=== PATIENT | male | born 1975 | race Caucasian/White ===

== ENCOUNTER 2018-09-30 10:24 | Observation (INO) | payer BC, OTHER ==
[2018-09-30] MEDS ORDERED: Proparacaine 0.5% Opth 15 ML BOT ONE (10:37)
[2018-09-30 10:53] LABS: Mean Corpuscular HGB CONC 31.7 g/dL (32.0-36.0); Mean Corpuscular Hemoglobin 27.4 pg (27.0-31.0); Mean Corpuscular Volume 86.4 fL (78.0-98.0); Mean Platelet Volume 8.1 fL (7.4-10.4); Platelet Count 226 thou/uL (130-400); RBC Distribution Width 14.6 % (11.5-14.5); Red Blood Cell (RBC) Count 6.59 mill/uL (4.70-6.10); White Blood Cell (WBC) Count 9.3 thou/uL (4.8-10.8)
--- NOTE | 2018-09-30 11:00 | CT ---
Exam: Head CT without contrast HISTORY: Headache. Left eye vision change. Symptoms onset yesterday at 1600 hours. Hazy vision. [place] y vision, double vision. COMPARISON: none FINDINGS: Hemorrhage: No intraparenchymal hemorrhage or extra-axial hematoma. Brain parenchyma: Cortical jason-white matter differentiation is preserved. No mass effect or midline shift. Basilar cisterns are patent. Ventricular system: Ventricles and sulci are patent and symmetric. Calvarium: Intact. Sinuses and mastoid air cells: Partial opacification of bilateral ethmoid air cells and maxillary sin uses. Adequate mastoid air cell aeration. Orbits: Visualized globes and retrobulbar structures are unremarkable IMPRESSION: No acute intracranial process. Results study discussed with Dr. Romo 09/30/2018 at 10:56 AM Code CR
[2018-09-30 11:08] LABS: ALT (SGPT) 59 U/L (8-55); AST (SGOT) 40 U/L (5-34); Albumin 4.7 g/dL (3.5-5.0); Alkaline Phosphatase 79 U/L (40-150); Anion Gap 13 mmol/L (10-20); BUN (Urea Nitrogen) 26 mg/dL (8.9-20.6); Bilirubin, Total 0.6 mg/dL (0.2-1.2); Calc. Creatinine Clearance 0 mL/min (70-130); Carbon Dioxide 27 mmol/L (22-29); Chloride 103 mmol/L (98-107); Estimated GFR-MDRD 72; Globulin 2.9 g/dL (2.4-3.5); Glucose 100 mg/dL (70-105); Potassium 4.6 mmol/L (3.5-5.1); Protein, Total 7.6 g/dL (6.0-8.3); Sodium 138 mmol/L (136-145)
[2018-09-30] MEDS ORDERED: Metoclopramide HCl 10 MG/2 ML VIAL ONE (11:23)
[2018-09-30] MEDS ORDERED: Acetaminophen 500 MG TAB ONE (11:23)
[2018-09-30] MEDS ORDERED: Ketorolac Tromethamine 30 MG/ML VIAL ONE (11:23)
[2018-09-30 11:41] LABS: Eosinophils 1 % (0-10); Hypochromia SLIGHT = 6-15 cells (100X) (0-5/hpf); Lymphocytes 27 % (21-51); MDiff Complete? YES; Monocytes 7 % (0-10); Neutrophil 63 % (42-75); Platelet Morphology Comment Appears Adequate; Polychromasia SLIGHT = 2-3 cells (100X) (0-2/hpf)
[2018-09-30] MEDS ORDERED: methylPREDNISolone Sod Succ 1,000 MG in Sodium Chloride 0.9% 100 ML IVPB SCH (12:45)
[2018-09-30] MEDS ORDERED: methylPREDNISolone Sod Succ 1,000 MG in Sodium Chloride 0.9% 250 ML 250 ML IVPB SCH (12:45)
--- NOTE | 2018-09-30 13:14 | PDOC.FPRHP ---
- History of Present Illness Chief Complaint: L eye pain History of Present Illness: 43yo M with pmh of HTN and Anxiety presents for L eye pain. Onset yesterday 4pm was sudden, pt felt sharp pain in eye with mvmt. Pt also reports to have visual disturbance (blurred vision, pixelated colors, halo rings). Eye pain progressed to head pain and L sided facial pain. Symptoms are localized to L side of face. Of note pt has had WARREN all week while working out (especially doing squats). Pt denies any other neurologic deficits including facial droop, slurred speech, and focal weakness. Symptoms were alleviated by toradol in ED somewhat though not resolved. ED Course: Toradol, tylenol, metoclopramide, 1L NS Neuro (Dr. Jackson) called and recommended 1g solumedrol (administered) - Allergies/Adverse Reactions Allergies Allergy/AdvReac Type Severity Reaction Status Date / Time Penicillins Allergy Verified 04/22/13 09:50 - Home Medications Medication Instructions Recorded Confirmed Type Atenolol 100 mg PO DAILY 09/30/18 09/30/18 History Atorvastatin Calcium [Lipitor] 20 mg PO DAILY 09/30/18 09/30/18 History Dexlansoprazole [Dexilant] 60 mg PO DAILY 09/30/18 09/30/18 History Niacin [Niacin SR] 500 mg PO HS 09/30/18 09/30/18 History [place]-3 Fatty Acids/Fish Oil 1 cap PO DAILY 09/30/18 09/30/18 History [[place] 3 1,000 mg Softgel] PARoxetine HCl [Paxil] 40 mg PO DAILY 09/30/18 09/30/18 History methylPREDNISolone [Medrol Dospak] 4 mg PO ASDIR 6 Days #1 pack 10/01/18 Rx - History PMHx: HTN, anxiety, GERD PSHx: tonsillectomy, colonoscopy with polyp bx FHx: PR in mother, muscular dystrophy (sister) Social: social drinking, denies tobacco and drugs - Review of Systems General: denies: fever/chills, fatigue Eyes: reports: eye pain, vision changes ENT: denies: nasal congestion, rhinorrhea Respiratory: denies: congestion, shortness of breath Cardiovascular: denies: chest pain, palpitation Gastrointestinal: denies: nausea, vomiting Genitourinary: denies: dysuria, polyuria Skin: denies: rashes, lesions Musculoskeletal: denies: pain, tenderness Neurological: denies: numbness, syncope, seizure Psychological: denies: anxiety, depression - Vital signs BP: 146/87, Pulse: 69, Resp: 20, Temp: 98.4, Pain: 6, O2 sat: 97 on RA, Time: 12:30. weight 88kg - Physical Exam Constitutional: awake, alert and oriented, well developed HEENT: conjunctiva clear, grossly normal hearing, MMM Neck: supple, trachea midline Chest: no lesions Heart: RRR, normal S1/S2 Lungs: CTAB, no respiratory distress Abdomen: soft, non-tender Musculoskeletal: normal structure, normal tone Neurological: no focal deficit, normal sensation, DTRs 2+ -Neurological: ocular mvmt test not tolerated by pt well 2/2 pain, however EOMI despite hesitancy with pain. pt has decreased acuity in L eye vision. Skin: no rash/lesions, good turgor -Skin: skin on L maxillary ttp, no erythema or edema Heme/Lymphatic: no purpura, no petechia Psychiatric: normal mood and affect, good judgment and insight FMR H&P: Results - Labs Result Diagrams: 09/30/18 10:36 10/01/18 05:53 Lab results: WBC 9.3 thou/uL (4.8-10.8) 09/30/18 10:36 Hgb 18.0 g/dL (14.0-18.0) 09/30/18 10:36 Hct 56.9 % (42.0-52.0) H 09/30/18 10:36 MCV 86.4 fL (78.0-98.0) 09/30/18 10:36 Plt Count 226 thou/uL (130-400) 09/30/18 10:36 ESR Westergren 2 mm/hr (Less than 15) 09/30/18 10:36 Sodium 138 mmol/L (136-145) 09/30/18 10:36 Potassium 4.6 mmol/L (3.5-5.1) 09/30/18 10:36 Chloride 103 mmol/L (98-107) 09/30/18 10:36 Carbon Dioxide 27 mmol/L (22-29) 09/30/18 10:36 BUN 26 mg/dL (8.9-20.6) H 09/30/18 10:36 Creatinine 1.11 mg/dL (0.7-1.3) 09/30/18 10:36 Glucose 100 mg/dL (70-105) 09/30/18 10:36 Calcium 10.0 mg/dL (7.8-10.44) 09/30/18 10:36 Total Bilirubin 0.6 mg/dL (0.2-1.2) 09/30/18 10:36 AST 40 U/L (5-34) H 09/30/18 10:36 ALT 59 U/L (8-55) H 09/30/18 10:36 Alkaline Phosphatase 79 U/L (40-150) 09/30/18 10:36 C-Reactive Protein Less than 0.50 mg/dL (= or < 0.5) 09/30/18 10:36 Serum Total Protein 7.6 g/dL (6.0-8.3) 09/30/18 10:36 Albumin 4.7 g/dL (3.5-5.0) 09/30/18 10:36 FMR H&P: A/P - Problem List (1) Eye pain Status: Acute Code(s): H57.10 - OCULAR PAIN, UNSPECIFIED EYE (2) Visual disorder Status: Acute Code(s): H53.9 - UNSPECIFIED VISUAL DISTURBANCE (3) HTN (hypertension) Status: Acute Code(s): I10 - ESSENTIAL (PRIMARY) HYPERTENSION (4) Elevated transaminase level Status: Acute Code(s): R74.0 - NONSPEC ELEV OF LEVELS OF TRANSAMNS & LACTIC ACID DEHYDRGNSE (5) Headache Status: Acute Code(s): R51 - HEADACHE - Plan L eye pain and visual disturbance A- Likely 2/2 complex migraine vs. optic neuritis vs. MS vs. anneurysm vs. HTN urgency encephalitis. CT brain negative. CRP and ESR wnl. Neuro exam not consistent with stroke. Pt s/p 1000mg solumedrol per Neuro recs (much appreciated) P- MRI and MRA Brain and orbits -Tylenol and toradol prn for pain -anti dsDNA and RAAD -control BP -f/u neuro recs HTN A- BP 175/101 in ER, could be contributing to WARREN and neurologic symptoms. 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 He reports this started yesterday afternoon. - Pertinent findings VSS - slightly hypertensive Gen: awake, alert, oriented HEENT: NCAT, MMM, L eye with significant photophobia, no t earing or erythema, Martinez' lamp exam negative, siena pen WNL per ER MD CV: RRR, no murmur RESP: CTAB ABD: soft, NTND NEURO: TTP of V2 distribution, diminished senstaion of V1, other CN WNL, strength and sensation intact throughout (slight decreased on L thigh) - Plan Date/Time: 09/30/18 1314 43 yo M who presents with L eye pain concerning for optic neuritis 1. Concern for optic neuritis - MRI/MRA pending - s/p solu-medrol in ED - Continue steroids, pending neuro recs - Toradol for pain, can escalate if needed - DDX includes MS, atypical migraine, cluster headache, CT negative for mass and bleed 2. HTN - Will augment home meds as needed I, Ricarda Abrams MD, PGY-3, have evaluated this patient and agree with findings/ plan as outlined by network internship resident. Pertinent changes/additions are listed here.
[2018-09-30] MEDS ORDERED: Acetaminophen 325 MG TAB PO PRN (14:30)
[2018-09-30] MEDS ORDERED: Ondansetron ODT 4 MG TAB PO PRN (14:30)
[2018-09-30] MEDS ORDERED: Aspirin 325 MG TAB PO SCH (14:30)
[2018-09-30] MEDS ORDERED: diphenhydrAMINE 50 MG/ML VIAL IVP SCH (14:30)
[2018-09-30] MEDS ORDERED: Calcium Carbonate 500 MG ChewTAB PO PRN (14:30)
[2018-09-30] MEDS ORDERED: hydrALAZINE 20 MG/ML VIAL SLOW IVP PRN (14:40)
[2018-09-30] MEDS ORDERED: Atorvastatin Calcium 40 MG TAB PO SCH (15:00)
[2018-09-30] MEDS ORDERED: Amlodipine 10 MG TAB PO SCH (15:00)
[2018-09-30] MEDS ORDERED: Sodium Chloride 0.9% 10 ML ONE (15:23)
[2018-09-30] MEDS ORDERED: Fluorescein Opthalmic Strip EA EYE SCH ×3 (16:00→16:15)
[2018-09-30] MEDS ORDERED: Ketorolac Tromethamine 30 MG/ML VIAL IVP PRN (16:05)
[2018-09-30 16:09] LABS: Hep B Surf Ag Non-Reactive S/CO (NonReactive); Hep C IgG Ab Non-Reactive (NonReactive); Hep C Index 0.03 S/CO (0-0.79)
--- NOTE | 2018-09-30 16:59 | PDOC.EVN ---
Event Note - Event Note Event Note: Date/Time: 09/30/18 7245 I personally evaluated the patient and discussed the management with Dr. Hunter at time of admission. H&P pending. I agree with the History, Examination, Assessment and Plan as discussed. His exam showed no deficits in his arms or legs. However he noted worsening [place] with exertion, such as lifting weights this past week. [place] left eye pain that is worse with moving the eye and with photophobia. MRa compelted. awaiting report.
--- NOTE | 2018-09-30 17:19 | MRI ---
Pre and postcontrast enhanced MRI images brain and orbits. HISTORY: New onset headaches double vision and blurring. Lungs clear multisequence pre and postcontrast enhanced MRI images of the brain and orbits demonstrat e bilateral maxillary sinus mucus retention cyst. Mild bilateral ethmoid and frontal sinus mucosal thickening seen. No evidence of significant intracranial masses or lesions seen. Ventricles are of normal size. No abnormal areas of intracranial enhancement seen. No evidence of T2 signal abnormality seen. The orbits are unremarkable. IMPRESSION: Unremarkable pre and postcontrast enhanced MRI images of brain and orbits. Incidentally n oted paranasal sinus disease is present.
--- NOTE | 2018-09-30 17:25 | MRI ---
MAGNETIC RESONANCE ANGIOGRAM MRA OF HEAD NONCONTRAST: 09/30/18 HISTORY: 43-year-old male with diplopia and blurred vision with severe headache. Rule out aneurysm. TECHNIQUE: 3D [id number] MRA acquisition in multiple axial slabs. Source images and 3D MIP reconstructions e valuated. FINDINGS: There is no evidence of aneurysm larger than 3 mm, including any Pcom aneurysms. In fact, there are n o posterior communicating arteries. There is no evidence of high grade short segment acquired stenosi s of the posterior circulation or anterior circulation. Please note that an MRA of the head is consid ered incomplete without an accompanying MRI. IMPRESSION: Negative. POS: CARLA
--- NOTE | 2018-10-01 00:54 | CON ---
DATE OF CONSULTATION: 09/30/2018 CONSULTING PHYSICIAN: Hospitalist Service. IMPRESSION: Left optic neuritis without evidence of central nervous system involvement to suggest multiple sclerosis. PLAN: 1. Solu-Medrol 1 g tomorrow. 2. Medrol Dosepak at discharge. 3. NMO and MOG antibodies. 4. Office followup. HISTORY OF PRESENT ILLNESS: Mr. Padron is a 43-year-old man with no significant past history. Yesterday, he started developing blurred vision on the left with high pain. He came into the emergency room today due to the persistent symptoms. He had a CT scan of the brain which was negative. His ocular pressures were normal. He was started on Solu-Medrol in the emergency room. He had an MRI of the brain and MRA, both of which were unremarkable. He grew up in [place]. His health has been good otherwise. ALLERGIES: NONE REPORTED. SOCIAL HISTORY: No illicit drug use. FAMILY HISTORY: Noncontributory. REVIEW OF SYSTEMS: Ten system review of systems is otherwise negative. PHYSICAL EXAMINATION: GENERAL: He is a healthy-appearing middle-aged man, in no acute distress. VITAL SIGNS: Stable. He has been afebrile. HEENT: Pupils are equal. Conjunctivae clear. Oropharynx clear. NECK: Supple. No lymphadenopathy. EXTREMITIES: No cyanosis or edema. NEUROLOGIC: He is alert and appropriate. His speech is fluent and clear. Cranial nerve exam shows normal eye movements. Face appears to be symmetric. Visual acuity is subjectively blurred in a patchy pattern on the left. Motor exam, equal strength. Sensations intact. Gait is steady. No abnormal movements are seen. IMAGING STUDIES: Reviewed. SUMMARY: A middle-aged man with acute onset of blurred vision and retro-orbital pain consistent with retrobulbar optic neuritis. He fortunately has no evidence of brain involvement to suggest a mass. We will rule out 2 other possibilities and follow up with him as an outpatient. Job ID: [id number]
[2018-10-01 06:30] LABS: ALT (SGPT) 49 U/L (8-55); AST (SGOT) 25 U/L (5-34); Alkaline Phosphatase 64 U/L (40-150); Anion Gap 10 mmol/L (10-20); BUN (Urea Nitrogen) 30 mg/dL (8.9-20.6); Bilirubin, Total 0.9 mg/dL (0.2-1.2); Calc. Creatinine Clearance 0 mL/min (70-130); Calcium 9.2 mg/dL (7.8-10.44); Carbon Dioxide 23 mmol/L (22-29); Cardiac Risk 5.5 (Less than 4.5); Chloride 107 mmol/L (98-107); Cholesterol 183 mg/dl (< 200 Desired); Estimated GFR-MDRD 63; Globulin 2.1 g/dL (2.4-3.5); Glucose 147 mg/dL (70-105); HDL Cholesterol 33 mg/dL (>60 Neg Risk); LDL Cholesterol, Calculated 136 mg/dL; Potassium 4.2 mmol/L (3.5-5.1); Protein, Total 6.1 g/dL (6.0-8.3); Sodium 136 mmol/L (136-145); Triglycerides 68 mg/dL (Less than 150)
--- NOTE | 2018-10-01 07:25 | PDOC.FM ---
- Subjective Subjective: Pt reports feelign much better with resolution of all pain and most of his visual symptoms. still has mild blurring of vision in L eye. - Objective Vital Signs & Weight: Vital Signs (12 hours) Temp Pulse Resp BP Pulse Ox 10/01/18 04:25 97.5 F L 63 16 107/66 10/01/18 00:40 98.2 F 75 16 117/69 95 09/30/18 20:14 98.0 F 77 18 134/68 94 L Result Diagrams: 09/30/18 10:36 10/01/18 05:53 Phys Exam - Physical Examination Constitutional: NAD HEENT: moist MMs, sclera anicteric no facial TTP Neck: no nodes, no JVD Respiratory: no wheezing, clear to auscultation bilateral Cardiovascular: RRR, no significant murmur Gastrointestinal: soft, non-tender Musculoskeletal: no edema, pulses present Neurological: non-focal, normal sensation, moves all 4 limbs Psychiatric: normal affect, A&O x 3 Skin: no rash, normal turgor Dx/Plan (1) Eye pain Code(s): H57.10 - OCULAR PAIN, UNSPECIFIED EYE Status: Acute (2) Visual disorder Code(s): H53.9 - UNSPECIFIED VISUAL DISTURBANCE Status: Acute (3) HTN (hypertension) Code(s): I10 - ESSENTIAL (PRIMARY) HYPERTENSION Status: Acute (4) Elevated transaminase level Code(s): R74.0 - NONSPEC ELEV OF LEVELS OF TRANSAMNS & LACTIC ACID DEHYDRGNSE Status: Acute (5) Headache Code(s): R51 - HEADACHE Status: Acute - Plan Plan: L eye pain and visual disturbance 2/2 optic neuritis A- MRI and MRA unremarkable, neuro consulted. CT brain negative. CRP and ESR wnl. Neuro exam not consistent with stroke. Pt s/p 1000mg solumedrol per Neuro recs (much appreciated) P- solumedrol 1g today, medrol pack on DC -Tylenol and toradol prn for pain -anti dsDNA and RAAD pending -f/u neuro oupt HTN A- BP 175/101 in ER, could be contributing to WARREN and neurologic symptoms. --> low wnl today. P- home atenolol -DC amlodipine -f/u outpt for monitoring elevated transaminases A- mild elevation on presentation --> wnl today. Hepatitis studies wnl P- f/u outpt for monitoring GERD -tums prn ANXIETY -home med CODE: full Addendum - Attending - Attending Attestation Date/Time: 10/01/18 1027 I personally evaluated the patient and discussed the management with Dr. Hunter I agree with the History, Examination, Assessment and Plan documented above with any addition or exceptions noted below. Patient without pain today, reportedly feels much better Negative hepatitis studies, plan to f/u outpt for elevated LFTs Per neuro recs, will f/u to continue workup Complex migraine vs. optic neuritis, will need to continue neuro f/u with Dr. Jackson, and we will send home with solumedrol in meantime. Discussed f/u with PCP Dr. Huang Patient improved and stable, d/c to home today
[2018-10-01] MEDS ORDERED: methylPREDNISolone Sod Succ 1 GM in Sodium Chloride 0.9% 250 ML 250 ML IVPB SCH (07:45)
[2018-10-01] MEDS: PARoxetine 20 MG TAB PO SCH ×2 (08:05→08:08)
[2018-10-01] MEDS: Atorvastatin Calcium 20 MG TAB PO SCH ×2 (08:06→08:08)
[2018-10-01] MEDS ORDERED: Sodium Chloride 0.9% 10 ML ONE (08:20)
[2018-10-01] MEDS ORDERED: Atenolol 50 MG TAB PO SCH (09:00)
[2018-10-01] MEDS ORDERED: Fish Oil 1,000 MG CAP PO SCH (09:00)
[2018-10-01] MEDS ORDERED: Aspirin 81 mg Enteric Coated Tablet PO SCH (09:00)
[2018-10-01] MEDS ORDERED: Amlodipine 10 MG TAB PO SCH (09:00)
[2018-10-01] MEDS ORDERED: Enoxaparin Sodium 40 MG/0.4 ML SYRINGE SC SCH (09:00)
[2018-10-01] MEDS ORDERED: methylPREDNISolone Sod Succ 40 MG VIAL IVPB SCH ×2 (10:30)
[2018-10-01 11:34] VITALS: BP 135/60; TEMP 97.9
[2018-10-01 17:34] LABS: dsDNA IgG Antibody 4.1 IU/mL (<10 Negative)
[2018-10-01] MEDS ORDERED: Atorvastatin Calcium 40 MG TAB PO SCH (21:00)
--- NOTE | 2018-10-02 03:03 | DIS ---
DATE OF ADMISSION: 09/30/2018 DATE OF DISCHARGE: 10/01/2018 RESIDENT: Santiago Hunter MD ADMITTING ATTENDING: Zak Munson MD DISCHARGE ATTENDING: Santiago Loving MD CONSULT: Neurology, Edwin Jackson MD PROCEDURES: 1. On 09/30/2018, brain CT, impression, no acute intracranial process. 2. On 09/30/2018, brain MRI, impression, unremarkable pre and post contrast enhanced MRI images of the brain and orbits, incidentally noted paranasal sinus disease is present. 3. On 09/30/2018, brain MRA, impression, negative. DISCHARGE MEDICATIONS: 1. [place]-3 fatty acids one cap p.o. daily. 2. Niacin 500 mg p.o. at bedtime. 3. Paroxetine 40 mg p.o. daily. 4. Dexilant 60 mg p.o. daily. 5. Atorvastatin 20 mg p.o. daily. 6. Atenolol 100 mg p.o. daily. 7. Medrol Dosepak, tapered over 6 days. DISCONTINUED MEDICATIONS: None. PRIMARY DIAGNOSIS: Complex migraine versus optic neuritis. SECONDARY DIAGNOSES: Hypertension, elevated transaminases, gastroesophageal reflux disease, anxiety. HISTORY OF PRESENT ILLNESS/HOSPITAL COURSE: This is a 43-year-old male, who presented to the hospital with complaint of acute onset eye pain, facial pain, and visual disturbance consistent with possible optic neuritis. The patient was admitted for optic neuritis and started on high-dose steroids for Neurology recommendations, which were much appreciated. Imaging studies were done, which were negative for optic neuritis, MS for brain aneurysm. Laboratory studies were done and sent out for MS and another autoimmune diseases. The patient's symptoms resolved well with Benadryl, and high-dose steroids. The patient was nearly asymptomatic and stable for discharge with plans for outpatient neurologic followup per Neurology's recommendations. Of note, the patient's hospital stay was also significant for mild elevation in transaminases on presentation. The patient had hepatitis studies done, which were negative and repeat CMP showed normal transaminase. DISPOSITION: Stable. DISCHARGE INSTRUCTIONS: 1. Location: Home. 2. Diet: Healthy heart. 3. Followup: Follow up with Dr. Jackson in [address] Huang in 10 days. 4. Activity: No restrictions. Job ID: [id number] [facility]
[2018-10-05 14:13] LABS: Cytoplasmic (C-ANCA) <1:20 titer (Neg:<1:20); Perinuclear (P-ANCA) <1:20 titer (Neg:<1:20)
== END 2018-10-01 12:10 | disposition home or self-care (01) ==
LOC: ERS 10:24 → 3SE 14:54
PROVIDERS: ADMIT Family Medicine; ATTEND Family Medicine
DX: H57.12 Ocular pain, left eye (principal); H53.8 Other visual disturbances; I10 Essential (primary) hypertension; R74.0 Nonspecific elevation of levels of transaminase and lactic acid dehydrogenase [LDH]; K21.9 Gastro-esophageal reflux disease without esophagitis; F41.9 Anxiety disorder, unspecified; R51 Headache; Z79.899 Other long term (current) drug therapy; Z88.0 Allergy status to penicillin
CPT/HCPCS: 36415; 36416; 70450; 70544; 70553; 80053; 80061; 85025; 85652; 86140; 86225; 86256; 86803; 87340; 93005; 96365; 96366; 96367; 96375; G0378; J1200; J1650; J1885; J2765; J2930; J3490; J7050

== ENCOUNTER 2018-10-18 08:41 | Emergency (ER) | payer OTHER ==
[2018-10-18] MEDS ORDERED: Ondansetron PF 4 MG/2 ML Vial ONE (08:52)
[2018-10-18] MEDS ORDERED: Morphine 4 MG/ML VIAL ONE (08:52)
[2018-10-18 09:00] LABS: #Basophils 0.2 thou/uL (0.0-0.2); #Eosinphils 0.4 thou/uL (0.0-0.7); #Lymphocytes 2.6 thou/uL (1.20-3.40); #Monocytes 0.7 thou/uL (0.11-0.59); %Basophils 1.9 % (0.0-1.0); %Eosinophils 3.9 % (0.0-10.0); %Lymphocytes 26.2 % (21.0-51.0); %Monocytes 7.2 % (0.0-10.0); %Neutrophils 60.8 % (42.0-75.0); Hemoglobin 18.5 g/dL (14.0-18.0); Mean Corpuscular HGB CONC 31.4 g/dL (32.0-36.0); Mean Corpuscular Volume 85.9 fL (78.0-98.0); Mean Platelet Volume 8.1 fL (7.4-10.4); Platelet Count 195 thou/uL (130-400); RBC Distribution Width 15.4 % (11.5-14.5); Red Blood Cell (RBC) Count 6.87 mill/uL (4.70-6.10); White Blood Cell (WBC) Count 9.9 thou/uL (4.8-10.8)
[2018-10-18 09:12] LABS: ALT (SGPT) 92 U/L (8-55); AST (SGOT) 37 U/L (5-34); Albumin 4.4 g/dL (3.5-5.0); Alkaline Phosphatase 72 U/L (40-150); Anion Gap 12 mmol/L (10-20); BUN (Urea Nitrogen) 16 mg/dL (8.9-20.6); Bilirubin, Total 1.1 mg/dL (0.2-1.2); Calc. Creatinine Clearance 0 mL/min (70-130); Calcium 9.1 mg/dL (7.8-10.44); Carbon Dioxide 30 mmol/L (22-29); Chloride 105 mmol/L (98-107); Estimated GFR-MDRD 62; Globulin 2.8 g/dL (2.4-3.5); Glucose 113 mg/dL (70-105); Lipase 39 U/L (8-78); Potassium 4.6 mmol/L (3.5-5.1); Protein, Total 7.2 g/dL (6.0-8.3); Sodium 142 mmol/L (136-145)
--- NOTE | 2018-10-18 10:38 | ULT ---
RIGHT UPPER QUADRANT ULTRASOUND: HISTORY: Right upper quadrant pain. FINDINGS: The liver demonstrates increased echogenicity consistent with fatty infiltration, without focal mass or intrahepatic ductal dilatation. No gallstones, gallbladder wall thickening, or pericholecystic fl uid is seen. The common duct measures 3 mm in diameter. The pancreas is not well visualized due to overlying bowel gas. No right-sided hydronephrosis is identified. No free fluid is seen in the Darion son's pouch. No definite renal mass is identified. IMPRESSION: 1. Fatty liver. 2. No evidence of cholelithiasis. POS: OFF
== END 2018-10-18 10:03 | disposition home or self-care (01) ==
LOC: SCSER 08:41
DX: K76.0 Fatty (change of) liver, not elsewhere classified (principal); I10 Essential (primary) hypertension; K21.9 Gastro-esophageal reflux disease without esophagitis; Z79.899 Other long term (current) drug therapy
CPT/HCPCS: 76705; 80053; 83690; 85025; 96374; 96375; J2270; J2405

== ENCOUNTER 2018-12-28 11:54 | Outpatient (CLI) | payer OTHER ==
--- NOTE | 2018-12-28 12:21 | RAD ---
RADIOGRAPH CHEST 2 VIEWS: DATE: 12/28/2018 HISTORY: 43-year-old male with cough and chest pain FINDINGS: Lateral view is degraded by patient breathing motion artifact. On the frontal view, there is mild str eaky density at the medial base of the left lower lobe. This is favored to represent subsegmental atelectasis or possibly scar, and less likely to represent early pneumonia. There is no airspace dens ity, pulmonary edema, pleural effusion, pneumothorax, or cardiomegaly. IMPRESSION: 1. No conclusive evidence of acute cardiopulmonary findings. 2. If symptoms persist, follow-up 2 view chest radiograph is recommended in one to 5 days.
== END 2018-12-28 11:55 | disposition home or self-care (01) ==
LOC: BICRAD 11:54
PROVIDERS: ATTEND Internal Medicine
DX: R07.9 Chest pain, unspecified (principal); R05 Cough
CPT/HCPCS: 71046

== ENCOUNTER 2020-02-06 09:49 | Emergency (ER) | payer OTHER ==
[2020-02-06] MEDS ORDERED: Morphine 4 MG/ML VIAL ONE ×2 (10:10→12:29)
[2020-02-06] MEDS ORDERED: Ondansetron PF 4 MG/2 ML Vial ONE ×2 (10:10→12:29)
[2020-02-06 10:18] LABS: #Basophils 0.1 thou/uL (0.0-0.2); #Eosinphils 0.1 thou/uL (0.0-0.7); #Monocytes 0.5 thou/uL (0.11-0.59); #Neutrophils 5.7 thou/uL (1.40-6.50); %Basophils 0.8 % (0.0-1.0); %Eosinophils 1.7 % (0.0-10.0); %Lymphocytes 24.2 % (21.0-51.0); %Monocytes 5.4 % (0.0-10.0); Hemoglobin 16.1 g/dL (14.0-18.0); Mean Corpuscular HGB CONC 33.7 g/dL (32.0-36.0); Mean Corpuscular Hemoglobin 29.7 pg (27.0-31.0); Mean Corpuscular Volume 88.1 fL (78.0-98.0); Platelet Count 234 thou/uL (130-400); RBC Distribution Width 13.2 % (11.5-14.5); Red Blood Cell (RBC) Count 5.44 mill/uL (4.70-6.10); White Blood Cell (WBC) Count 8.3 thou/uL (4.8-10.8)
--- NOTE | 2020-02-06 10:22 | RAD ---
XR Chest 1 View Portable History: Diarrhea. Shoulder pain Comparison: Radiograph 2019 Findings: Lungs are clear. No pneumothorax or effusion. Cardiac silhouette and mediastinal contours a re within normal limits. No acute osseous abnormality. Impression: No acute intrathoracic abnormality.
[2020-02-06 10:38] LABS: ALT (SGPT) 34 U/L (8-55); AST (SGOT) 25 U/L (5-34); Albumin 4.7 g/dL (3.5-5.0); Alkaline Phosphatase 95 U/L (40-110); Anion Gap 10 mmol/L (10-20); BUN (Urea Nitrogen) 22 mg/dL (8.9-20.6); Bilirubin, Total 0.7 mg/dL (0.2-1.2); CK (CPK) 256 U/L (30-200); Calc. Creatinine Clearance 0 mL/min (70-130); Calcium 9.5 mg/dL (7.8-10.44); Carbon Dioxide 27 mmol/L (22-29); Chloride 106 mmol/L (98-107); Estimated GFR-MDRD 68; Globulin 2.6 g/dL (2.4-3.5); Glucose 96 mg/dL (70-105); Lipase 42 U/L (8-78); Potassium 4.1 mmol/L (3.5-5.1); Protein, Total 7.3 g/dL (6.0-8.3); Sodium 139 mmol/L (136-145)
--- NOTE | 2020-02-06 12:48 | CT ---
CT Abdomen Pelvis W Con History: Abdominal pain Comparison: Abdomen pelvis CT 2016 Findings: Focal area of scar within the lingula as well as both lower lobes. The liver, pancreas, spl een, adrenal glands are unremarkable. No hydroureteronephrosis. No free intraperitoneal gas or fluid. No acute osseous abnormality. Impression: No acute inflammatory process within the abdomen or pelvis.
[2020-02-06] MEDS ORDERED: Iopamidol-370 76% 500 ML 1 ML ONE (13:48)
[2020-02-06 14:17] LABS: Troponin I 0.019 ng/mL (< 0.028)
== END 2020-02-06 15:02 | disposition home or self-care (01) ==
LOC: ERS 09:49
DX: R07.89 Other chest pain (principal); R19.7 Diarrhea, unspecified; R11.2 Nausea with vomiting, unspecified; I10 Essential (primary) hypertension; F41.9 Anxiety disorder, unspecified; E78.5 Hyperlipidemia, unspecified; Z79.899 Other long term (current) drug therapy
CPT/HCPCS: 36415; 71045; 74177; 80053; 82550; 83690; 84484; 85025; 93005; 94760; 96374; 96375; 96376; J2270; J2405; Q9967

== ENCOUNTER 2020-04-14 17:30 | Emergency (ER) | payer OTHER ==
[2020-04-14] MEDS ORDERED: Dexamethasone 10 MG/ML VIAL ONE (18:13)
[2020-04-14 18:15] LABS: #Monocytes 0.6 thou/uL (0.11-0.59); #Neutrophils 2.7 thou/uL (1.40-6.50); %Basophils 0.7 % (0.0-1.0); %Eosinophils 0.1 % (0.0-10.0); %Lymphocytes 23.1 % (21.0-51.0); %Monocytes 13.8 % (0.0-10.0); %Neutrophils 62.3 % (42.0-75.0); Hemoglobin 15.7 g/dL (14.0-18.0); Mean Corpuscular HGB CONC 33.2 g/dL (32.0-36.0); Mean Corpuscular Volume 84.2 fL (78.0-98.0); Mean Platelet Volume 8.4 fL (7.4-10.4); Platelet Count 151 thou/uL (130-400); RBC Distribution Width 14.7 % (11.5-14.5); Red Blood Cell (RBC) Count 5.61 mill/uL (4.70-6.10); White Blood Cell (WBC) Count 4.4 thou/uL (4.8-10.8)
[2020-04-14 18:35] LABS: ALT (SGPT) 21 U/L (8-55); AST (SGOT) 17 U/L (5-34); Albumin 4.1 g/dL (3.5-5.0); Alkaline Phosphatase 92 U/L (40-110); Anion Gap 17 mmol/L (10-20); BUN (Urea Nitrogen) 26 mg/dL (8.9-20.6); Bilirubin, Total 0.8 mg/dL (0.2-1.2); CK (CPK) 68 U/L (30-200); Calc. Creatinine Clearance 0 mL/min (70-130); Calcium 8.1 mg/dL (7.8-10.44); Carbon Dioxide 24 mmol/L (22-29); Chloride 102 mmol/L (98-107); Globulin 2.9 g/dL (2.4-3.5); Glucose 127 mg/dL (70-105); Lipase 79 U/L (8-78); Potassium 3.4 mmol/L (3.5-5.1); Sodium 140 mmol/L (136-145)
--- NOTE | 2020-04-14 19:59 | RAD ---
CHEST ONE VIEW: History: Dyspnea Comparison: 02-06-2020 FINDINGS: Lungs are mildly hypoinflated although without acute air space consolidation, pneumothorax, or effusi on. No acute osseous abnormality. Cardiac silhouette and mediastinal contours are similar. IMPRESSION: No acute intrathoracic abnormality. POS: HOME
== END 2020-04-14 20:27 | disposition home or self-care (01) ==
LOC: ERS 17:30
DX: U07.1 COVID-19 (principal); I10 Essential (primary) hypertension; Z79.899 Other long term (current) drug therapy
CPT/HCPCS: 71045; 80053; 82550; 83690; 84484; 85025; 85379; 93005; 96374; J1100

== ENCOUNTER 2020-04-18 10:44 | Emergency (ER) | payer OTHER ==
--- NOTE | 2020-04-18 11:26 | RAD ---
Chest one view HISTORY: Cough. Dyspnea. Chest pain. COMPARISON: 04/14/2020. FINDINGS: Cardiac silhouette is unremarkable. Pulmonary vasculature are within normal limits. Mediastinum is midline. Minimal parenchymal opacity at the left base favored to represent crowding of vessels due to shallow inspiration. No lobar consolidation or evidence of pneumothorax. IMPRESSION : No acute abnormalities are demonstrated.
[2020-04-18 11:28] LABS: #Basophils 0.1 thou/uL (0.0-0.2); #Lymphocytes 1.1 thou/uL (1.20-3.40); #Monocytes 0.4 thou/uL (0.11-0.59); #Neutrophils 2.8 thou/uL (1.40-6.50); %Basophils 1.5 % (0.0-1.0); %Eosinophils 0.8 % (0.0-10.0); %Lymphocytes 25.3 % (21.0-51.0); %Neutrophils 63.5 % (42.0-75.0); Hemoglobin 16.6 g/dL (14.0-18.0); Mean Corpuscular Hemoglobin 28.1 pg (27.0-31.0); Mean Corpuscular Volume 85.1 fL (78.0-98.0); Mean Platelet Volume 7.6 fL (7.4-10.4); Platelet Count 177 thou/uL (130-400); RBC Distribution Width 14.4 % (11.5-14.5); Red Blood Cell (RBC) Count 5.89 mill/uL (4.70-6.10); White Blood Cell (WBC) Count 4.4 thou/uL (4.8-10.8)
[2020-04-18 11:52] LABS: ALT (SGPT) 32 U/L (8-55); AST (SGOT) 33 U/L (5-34); Alkaline Phosphatase 81 U/L (40-110); Anion Gap 18 mmol/L (10-20); BUN (Urea Nitrogen) 27 mg/dL (8.9-20.6); Bilirubin, Total 0.9 mg/dL (0.2-1.2); Calc. Creatinine Clearance 0 mL/min (70-130); Calcium 8.2 mg/dL (7.8-10.44); Carbon Dioxide 27 mmol/L (22-29); Chloride 98 mmol/L (98-107); Globulin 2.7 g/dL (2.4-3.5); Glucose 101 mg/dL (70-105); Potassium 3.5 mmol/L (3.5-5.1); Protein, Total 6.7 g/dL (6.0-8.3); Sodium 139 mmol/L (136-145)
[2020-04-18] MEDS ORDERED: Dexamethasone 10 MG/ML VIAL ONE (12:21)
[2020-04-18] MEDS ORDERED: Ondansetron PF 4 MG/2 ML Vial ONE (12:21)
[2020-04-18] MEDS ORDERED: Aspirin Chewable 81 MG TAB ONE (12:23)
--- NOTE | 2020-04-18 13:24 | CT ---
CTA Angio Chest W WO Con 04/18/2020 1:05 PM Indication: Chest pain history of Covid Technique: Multiple CTA images were obtained of the thorax with IV contrast. 3-D rendering: MIP kwabena nstructed images were created and reviewed. Comparison: Chest radiograph dated April 18, 2020 Findings: Pulmonary arteries: No central or segmental pulmonary embolus is evident. Heart and Aorta: Normal appearing. Mediastinum:Small hiatal hernia. No enlarged lymph nodes. Lungs:There are patchy areas of peripheral subpleural groundglass opacity within the upper lobes, rig ht middle lobe and both lower lobe suspicious for Covid pneumonia. Pleural space: Clear. Upper Abdomen: No acute abnormality. Osseous Structures: No acute osseous abnormality. Soft tissues:No abnormality. Other findings:None. Impression: 1. No central or segmental pulmonary embolus. 2. Bilateral pneumonia. 3. Small hiatal hernia.
[2020-04-18] MEDS ORDERED: Azithromycin 250 MG TAB ONE (14:37)
== END 2020-04-18 16:26 | disposition home or self-care (01) ==
LOC: ERS 10:44
DX: U07.1 COVID-19 (principal); J12.89 Other viral pneumonia; I10 Essential (primary) hypertension; Z79.899 Other long term (current) drug therapy
CPT/HCPCS: 71045; 71275; 80053; 83605; 83880; 84484; 85025; 85379; 86140; 93005; 96374; 96375; J1100; J2405

== ENCOUNTER 2020-06-27 17:41 | Emergency (ER) | payer OTHER ==
[2020-06-27] MEDS ORDERED: Ketorolac Tromethamine 30 MG/ML VIAL ONE (18:05)
[2020-06-27] MEDS ORDERED: Acetaminophen 500 MG TAB ONE (18:05)
== END 2020-06-27 20:07 | disposition home or self-care (01) ==
LOC: ERS 17:41
DX: M79.10 Myalgia, unspecified site (principal); T50.B95A Adverse effect of other viral vaccines, initial encounter; R50.9 Fever, unspecified; I10 Essential (primary) hypertension; E78.00 Pure hypercholesterolemia, unspecified; K21.9 Gastro-esophageal reflux disease without esophagitis; Z79.899 Other long term (current) drug therapy
CPT/HCPCS: 96374; J1885

== ENCOUNTER 2020-07-26 10:07 | Emergency (ER) | payer OTHER ==
[2020-07-26] MEDS ORDERED: Ketorolac Tromethamine 30 MG/ML VIAL ONE (11:54)
== END 2020-07-26 12:39 | disposition home or self-care (01) ==
LOC: ERS 10:07
DX: R50.83 Postvaccination fever (principal); T50.B95A Adverse effect of other viral vaccines, initial encounter; E78.00 Pure hypercholesterolemia, unspecified; I10 Essential (primary) hypertension; K21.9 Gastro-esophageal reflux disease without esophagitis; Z79.899 Other long term (current) drug therapy
CPT/HCPCS: 96372; 99283; J1885

== ENCOUNTER 2021-01-18 13:33 | Observation (INO) | payer OTHER ==
[~2021-01-18 13:33] MED LIST: Iopamidol-370 76% 500 ML 1 ML ONE
[2021-01-18 14:14] LABS: #Basophils 0.1 thou/uL (0.0-0.2); #Eosinphils 0.4 thou/uL (0.0-0.7); #Lymphocytes 2.8 thou/uL (1.20-3.40); #Monocytes 0.7 thou/uL (0.11-0.59); #Neutrophils 5.8 thou/uL (1.40-6.50); %Basophils 1.1 % (0.0-1.0); %Eosinophils 4.2 % (0.0-10.0); %Monocytes 7.2 % (0.0-10.0); %Neutrophils 59.4 % (42.0-75.0); Hemoglobin 16.7 g/dL (14.0-18.0); Mean Corpuscular HGB CONC 31.4 g/dL (32.0-36.0); Mean Corpuscular Hemoglobin 28.1 pg (27.0-31.0); Mean Corpuscular Volume 89.6 fL (78.0-98.0); Mean Platelet Volume 7.8 fL (7.4-10.4); Platelet Count 182 thou/uL (130-400); RBC Distribution Width 14.6 % (11.5-14.5); Red Blood Cell (RBC) Count 5.95 mill/uL (4.70-6.10); White Blood Cell (WBC) Count 9.8 thou/uL (4.8-10.8)
[2021-01-18 14:30] LABS: ALT (SGPT) 63 U/L (8-55); AST (SGOT) 34 U/L (5-34); Albumin 4.2 g/dL (3.5-5.0); Alkaline Phosphatase 83 U/L (40-110); Anion Gap 11 mmol/L (10-20); BUN (Urea Nitrogen) 10 mg/dL (8.9-20.6); Calc. Creatinine Clearance 0 mL/min (70-130); Calcium 9.4 mg/dL (7.8-10.44); Carbon Dioxide 29 mmol/L (22-29); Chloride 106 mmol/L (98-107); Globulin 2.3 g/dL (2.4-3.5); Glucose 96 mg/dL (70-105); Potassium 4.6 mmol/L (3.5-5.1); Protein, Total 6.5 g/dL (6.0-8.3); Sodium 141 mmol/L (136-145)
[2021-01-18] MEDS ORDERED: Morphine 4 MG/ML VIAL ONE (16:19)
[2021-01-19 01:16] VITALS: BMI 30.2
[2021-01-19] MEDS: Morphine 4 MG/ML VIAL SLOW IVP PRN ×2 (03:59→04:32)
[2021-01-19] MEDS ORDERED: Acetaminophen 325 MG TAB PO PRN ×2 (04:18→12:47)
[2021-01-19] MEDS ORDERED: HYDROcodone/Acetaminophen 5/325 mg Tablet PO PRN (12:11)
[2021-01-19] MEDS ORDERED: Ondansetron ODT 4 MG TAB PO PRN ×2 (12:35→12:47)
[2021-01-19] MEDS ORDERED: hydrALAZINE 20 MG/ML VIAL SLOW IVP PRN (12:47)
[2021-01-19 17:44] LABS: SARS-CoV-2 PCR by NAA Not Detected (NotDetected)
[2021-01-19] MEDS: HYDROcodone/Acetaminophen 5/325 mg Tablet PO PRN (20:06)
[2021-01-19] MEDS ORDERED: Amitriptyline HCl 25 MG TAB PO SCH (21:00)
[2021-01-20 06:33] LABS: #Basophils 0.1 thou/uL (0.0-0.2); #Eosinphils 0.3 thou/uL (0.0-0.7); #Lymphocytes 2.3 thou/uL (1.20-3.40); #Monocytes 0.5 thou/uL (0.11-0.59); #Neutrophils 3.2 thou/uL (1.40-6.50); %Basophils 1.3 % (0.0-1.0); %Eosinophils 4.1 % (0.0-10.0); %Lymphocytes 36.4 % (21.0-51.0); %Monocytes 7.9 % (0.0-10.0); %Neutrophils 50.4 % (42.0-75.0); Hemoglobin 15.1 g/dL (14.0-18.0); Mean Corpuscular HGB CONC 30.8 g/dL (32.0-36.0); Mean Corpuscular Hemoglobin 27.6 pg (27.0-31.0); Mean Corpuscular Volume 89.7 fL (78.0-98.0); Platelet Count 164 thou/uL (130-400); RBC Distribution Width 14.2 % (11.5-14.5); Red Blood Cell (RBC) Count 5.48 mill/uL (4.70-6.10); White Blood Cell (WBC) Count 6.4 thou/uL (4.8-10.8)
[2021-01-20 06:45] LABS: Anion Gap 9 mmol/L (10-20); BUN (Urea Nitrogen) 16 mg/dL (8.9-20.6); Calc. Creatinine Clearance 115 mL/min (70-130); Carbon Dioxide 28 mmol/L (22-29); Chloride 105 mmol/L (98-107); Potassium 4.1 mmol/L (3.5-5.1); Sodium 138 mmol/L (136-145)
[2021-01-20 06:46] LABS: Calcium 8.8 mg/dL (7.8-10.44); Glucose 96 mg/dL (70-105)
[2021-01-20] MEDS ORDERED: Atenolol 50 MG TAB PO SCH (09:00)
[2021-01-20] MEDS ORDERED: Atorvastatin Calcium 20 MG TAB PO SCH (09:00)
[2021-01-20] MEDS ORDERED: PARoxetine 20 MG TAB PO SCH (09:00)
[2021-01-20] MEDS: HYDROcodone/Acetaminophen 5/325 mg Tablet PO PRN (09:36)
[2021-01-20 15:57] VITALS: BP 142/81; TEMP 97.9
== END 2021-01-20 16:30 | disposition home or self-care (01) ==
LOC: ERS 13:33 → 3SE 21:20 → SURG B 01-19 15:02
PROVIDERS: ADMIT Internal Medicine; ATTEND Internal Medicine
DX: M79.672 Pain in left foot (principal); M25.562 Pain in left knee; M25.475 Effusion, left foot; I70.202 Unspecified atherosclerosis of native arteries of extremities, left leg; I10 Essential (primary) hypertension; E78.5 Hyperlipidemia, unspecified; E78.00 Pure hypercholesterolemia, unspecified; K21.9 Gastro-esophageal reflux disease without esophagitis; Z20.822 Contact with and (suspected) exposure to COVID-19; Z88.0 Allergy status to penicillin; Z79.899 Other long term (current) drug therapy; Z86.16 Personal history of COVID-19
CPT/HCPCS: 36415; 75635; 80048; 80053; 83605; 85025; 85379; 93005; 93923; 96374; 96376; G0378; J2270; Q0162; Q9967; U0003; U0005

== ENCOUNTER 2024-06-17 15:40 | Outpatient (CLI) | payer BC | END 2024-06-17 15:41 | disposition home or self-care (01) | LOC: SCSRAD 15:40 | PROVIDERS: ATTEND Family Medicine | DX: M54.50 Low back pain, unspecified (principal); M54.2 Cervicalgia; M54.6 Pain in thoracic spine; M47.816 Spondylosis without myelopathy or radiculopathy, lumbar region; M47.814 Spondylosis without myelopathy or radiculopathy, thoracic region; M47.812 Spondylosis without myelopathy or radiculopathy, cervical region; Q76.49 Other congenital malformations of spine, not associated with scoliosis | CPT/HCPCS: 72040; 72072; 72100 ==